=== PATIENT | male | born 2000 | race Caucasian/White ===

== ENCOUNTER 2024-04-26 20:13 | Emergency (ER) | payer BC ==
[2024-04-26] MEDS ORDERED: predniSONE 20 MG TAB ONE (20:50)
== END 2024-04-26 20:58 | disposition home or self-care (01) ==
LOC: CSHERS 20:13
DX: T78.1XXA Other adverse food reactions, not elsewhere classified, initial encounter (principal); Z55.0 Illiteracy and low-level literacy
CPT/HCPCS: 99283; J7512